=== PATIENT | male | born 1965 | race Caucasian/White ===

== ENCOUNTER 2023-05-23 14:38 | Inpatient (IN) | payer OTHER ==
[2023-05-23 16:09] LABS: EOS % 1.8 % (0-4.5); HEMATOCRIT 39.9 % (35.4-49); HEMOGLOBIN 13.6 GM/dL (11.7-16.9); MCH 32.3 pg (25.7-33.7); MCHC 34.1 g/dl (32.0-35.9); MEAN CELL VOLUME 94.7 fl (80-96); MONO % 6.2 % (3.8-10.2); PLATELET COUNT 322 10^3/uL (134-434); RBC 4.21 M/mm3 (4.00-5.60); RDW 13.3 % (11.9-15.9); WHITE BLOOD COUNT 14.2 K/mm3 (4.0-10.0)
[2023-05-23 16:17] LABS: INR 1.09 (0.83-1.09); PROTHROMBIN TIME (PATIENT) 12.6 SEC (9.7-13.0)
[2023-05-23 16:35] LABS: POTASSIUM 3.7 mmol/L (3.5-5.1)
[2023-05-23 16:37] LABS: CALCIUM 8.7 mg/dL (8.5-10.1)
[2023-05-23 16:38] LABS: ALBUMIN 3.3 g/dl (3.4-5.0); BLOOD UREA NITROGEN 17.3 mg/dL (7-18)
[2023-05-23 16:41] LABS: CREATININE 0.9 mg/dL (0.55-1.3)
[2023-05-23 16:42] LABS: BILIRUBIN,TOTAL 0.6 mg/dL (0.2-1); TOT PROT 6.4 g/dl (6.4-8.2)
[2023-05-23] MEDS ORDERED: LABETALOL HCL 5 MG/1 ML (100MG/20 ML VIAL) IVPUSH ONE (17:13)
[2023-05-23] MEDS ORDERED: LABETALOL HCL 5 MG/1 ML (100MG/20 ML VIAL) ONE (17:14)
[2023-05-23] MEDS ORDERED: FLUTICASONE PROP 0.05% 16 GM NASAL SPRAY NS ONE (22:19)
[2023-05-23] MEDS ORDERED: NICOTINE 21 MG/24 HOURS TOPICAL PATCH ONE (22:19)
[2023-05-23] MEDS: NICOTINE 7 MG/24 HOURS TOPICAL PATCH TD SCH (22:21)
[2023-05-23] MEDS ORDERED: NICOTINE 7 MG/24 HOURS TOPICAL PATCH TD ONE (22:23)
[2023-05-24] MEDS ORDERED: NIFEdipine E.R 60 MG TABLET PO ONE (00:18)
[2023-05-24] MEDS ORDERED: LABETALOL HCL 5 MG/1 ML (100MG/20 ML VIAL) IVPUSH ONE (00:21)
[2023-05-24] MEDS ORDERED: LABETALOL HCL 5 MG/1 ML (100MG/20 ML VIAL) ONE (01:09)
[2023-05-24] MEDS ORDERED: FUROSEMIDE 40 MG/4 ML INJECTABLE VIAL IVPUSH ONE (01:43)
[2023-05-24] MEDS ORDERED: FUROSEMIDE 40 MG/4 ML INJECTABLE VIAL ONE (02:06)
[2023-05-24 02:19] LABS: N-TERMINAL BNP 3018.8 pg/ml (5-125)
[2023-05-24] MEDS ORDERED: hydrALAZINE HCL 20 MG/ML VIAL IVPUSH PRN (02:30)
[2023-05-24 04:06] LABS: PH,URINE 6.5 (5.0-8.0); URINE APPEARANCE CLEAR; URINE BILIRUBIN NEGATIVE (NEGATIVE); URINE COLOR YELLOW; URINE GLUCOSE (UA) NEGATIVE (NEGATIVE); URINE KETONE NEGATIVE (NEGATIVE); URINE LEUK ESTERASE NEGATIVE (NEGATIVE); URINE NITRITE NEGATIVE (NEGATIVE); URINE PROTEIN NEGATIVE (NEGATIVE); URINE UROBILINOGEN 0.2 mg/dL (0.2-1.0)
[2023-05-24 04:09] VITALS: BMI 32.6
[2023-05-24 04:13] LABS: METHADONE, UR NEGATIVE (NEGATIVE); OPIATES, URI NEGATIVE (NEGATIVE); PHENCYCLIDINE,URINE NEGATIVE (NEGATIVE)
[2023-05-24] MEDS ORDERED: LOSARTAN 50MG/HCTZ 12.5MG 1 TAB PO SCH ×2 (05:00→10:00)
[2023-05-24] MEDS ORDERED: NIFEdipine E.R 60 MG TABLET PO SCH ×2 (05:00→10:00)
[2023-05-24 06:00] LABS: COCAINE, UR POSITIVE (NEGATIVE); URINE AMPHETAMINES NEGATIVE (NEGATIVE); URINE BARBITURATES NEGATIVE (NEGATIVE); URINE BENZODIAZEPINES NEGATIVE (NEGATIVE)
[2023-05-24] MEDS ORDERED: ENOXAPARIN NA (PORCINE) 40 MG/0.4 ML DISP.SYRIN SQ SCH (10:00)
[2023-05-24] MEDS ORDERED: FOLIC ACID 1 MG TABLET (FP) PO SCH (10:00)
[2023-05-24] MEDS ORDERED: FUROSEMIDE 40 MG/4 ML INJECTABLE VIAL IVPUSH SCH (10:00)
[2023-05-24] MEDS ORDERED: HYDROCORTISONE 2.5% TOPICAL CREAM 30 GM TUBE TP SCH (10:00)
[2023-05-24] MEDS ORDERED: THIAMINE HCL 100 MG TABLET (FP) PO SCH (10:00)
[2023-05-24] MEDS ORDERED: CLOTRIMAZOLE 1% CREAM TP SCH (10:00)
[2023-05-24] MEDS ORDERED: POLYETHYLENE GLYCOL (HEALTHYLAX) 3350 17 GM PACKET PO SCH (10:00)
[2023-05-24] MEDS: NICOTINE 7 MG/24 HOURS TOPICAL PATCH TD SCH (10:19)
[2023-05-24] MEDS ORDERED: NYSTATIN 100,000 UNIT/GM TOPICAL CREAM 15 GM TUBE TP SCH (11:00)
[2023-05-24] MEDS ORDERED: BISACODYL 10 MG SUPP.RECT PR ONE (17:36)
[2023-05-24] MEDS: hydrALAZINE HCL 20 MG/ML VIAL IVPUSH PRN (22:48)
[2023-05-25] MEDS: NYSTATIN 100,000 UNIT/GM TOPICAL CREAM 15 GM TUBE TP SCH ×3 (01:48→22:22)
[2023-05-25] MEDS: hydrALAZINE HCL 20 MG/ML VIAL IVPUSH PRN ×2 (04:05→17:26)
[2023-05-25 09:15] LABS: HEMATOCRIT 40.3 % (35.4-49); HEMOGLOBIN 13.7 GM/dL (11.7-16.9); MCH 32.5 pg (25.7-33.7); MEAN CELL VOLUME 95.6 fl (80-96); MEAN PLT VOLUME 7.4 fl (7.5-11.1); PLATELET COUNT 322 10^3/uL (134-434); RBC 4.21 M/mm3 (4.00-5.60); RDW 13.4 % (11.9-15.9); WHITE BLOOD COUNT 13.5 K/mm3 (4.0-10.0)
[2023-05-25 09:16] LABS: BASO % 0.5 % (0-2.0); EOS % 2.6 % (0-4.5); HEMATOCRIT 39.5 % (35.4-49); HEMOGLOBIN 13.6 GM/dL (11.7-16.9); LYMPH % 12.3 % (8-40); MCH 32.8 pg (25.7-33.7); MCHC 34.4 g/dl (32.0-35.9); MEAN CELL VOLUME 95.2 fl (80-96); MEAN PLT VOLUME 7.5 fl (7.5-11.1); MONO % 9.2 % (3.8-10.2); NEUT % 75.4 % (42.8-82.8); PLATELET COUNT 326 10^3/uL (134-434); RBC 4.14 M/mm3 (4.00-5.60); RDW 13.5 % (11.9-15.9); WHITE BLOOD COUNT 13.7 K/mm3 (4.0-10.0)
[2023-05-25 09:33] LABS: POTASSIUM 3.3 mmol/L (3.5-5.1)
[2023-05-25 09:37] LABS: ALBUMIN 3.5 g/dl (3.4-5.0); BLOOD UREA NITROGEN 22.2 mg/dL (7-18); CALCIUM 8.9 mg/dL (8.5-10.1)
[2023-05-25 09:41] LABS: CREATININE 1.1 mg/dL (0.55-1.3)
[2023-05-25 09:42] LABS: BILIRUBIN,TOTAL 0.9 mg/dL (0.2-1); TOT PROT 6.8 g/dl (6.4-8.2)
[2023-05-25] MEDS: POLYETHYLENE GLYCOL (HEALTHYLAX) 3350 17 GM PACKET PO SCH (09:42)
[2023-05-25] MEDS: THIAMINE HCL 100 MG TABLET (FP) PO SCH (09:42)
[2023-05-25] MEDS: LOSARTAN 50MG/HCTZ 12.5MG 1 TAB PO SCH (09:42)
[2023-05-25] MEDS: FOLIC ACID 1 MG TABLET (FP) PO SCH (09:42)
[2023-05-25] MEDS: NICOTINE 7 MG/24 HOURS TOPICAL PATCH TD SCH (09:42)
[2023-05-25] MEDS: NIFEdipine E.R 60 MG TABLET PO SCH (09:42)
[2023-05-25] MEDS: HYDROCORTISONE 2.5% TOPICAL CREAM 30 GM TUBE TP SCH (09:43)
[2023-05-25] MEDS: CLOTRIMAZOLE 1% CREAM TP SCH (09:44)
[2023-05-25] MEDS ORDERED: FUROSEMIDE 40 MG/4 ML INJECTABLE VIAL IVPUSH SCH (10:00)
[2023-05-25] MEDS ORDERED: SODIUM CHLORIDE NASAL SPRAY 44 ML BOTTLE NS PRN (15:46)
[2023-05-26 09:09] LABS: BASO % 0.9 % (0-2.0); EOS % 2.1 % (0-4.5); HEMATOCRIT 42.2 % (35.4-49); HEMOGLOBIN 14.1 GM/dL (11.7-16.9); MCH 31.8 pg (25.7-33.7); MCHC 33.4 g/dl (32.0-35.9); MEAN CELL VOLUME 95.3 fl (80-96); MEAN PLT VOLUME 7.4 fl (7.5-11.1); PLATELET COUNT 338 10^3/uL (134-434); RBC 4.43 M/mm3 (4.00-5.60); RDW 12.9 % (11.9-15.9); WHITE BLOOD COUNT 13.6 K/mm3 (4.0-10.0)
[2023-05-26 09:21] LABS: POTASSIUM 3.6 mmol/L (3.5-5.1)
[2023-05-26 09:24] LABS: ALBUMIN 3.3 g/dl (3.4-5.0); CALCIUM 8.9 mg/dL (8.5-10.1)
[2023-05-26 09:29] LABS: BILIRUBIN,TOTAL 0.8 mg/dL (0.2-1); TOT PROT 6.6 g/dl (6.4-8.2)
[2023-05-26] MEDS: NICOTINE 7 MG/24 HOURS TOPICAL PATCH TD SCH (09:39)
[2023-05-26] MEDS: CLOTRIMAZOLE 1% CREAM TP SCH (09:39)
[2023-05-26] MEDS: FOLIC ACID 1 MG TABLET (FP) PO SCH (09:39)
[2023-05-26] MEDS: POLYETHYLENE GLYCOL (HEALTHYLAX) 3350 17 GM PACKET PO SCH (09:39)
[2023-05-26] MEDS: LOSARTAN 50MG/HCTZ 12.5MG 1 TAB PO SCH (09:39)
[2023-05-26] MEDS: NIFEdipine E.R 60 MG TABLET PO SCH (09:39)
[2023-05-26] MEDS: THIAMINE HCL 100 MG TABLET (FP) PO SCH (09:39)
[2023-05-26] MEDS: HYDROCORTISONE 2.5% TOPICAL CREAM 30 GM TUBE TP SCH (09:40)
[2023-05-26] MEDS: NYSTATIN 100,000 UNIT/GM TOPICAL CREAM 15 GM TUBE TP SCH ×2 (09:40→22:32)
[2023-05-26] MEDS: hydrALAZINE HCL 20 MG/ML VIAL IVPUSH PRN (14:28)
[2023-05-26] MEDS: LISINOPRIL 10 MG TABLET PO SCH (17:49)
[2023-05-27] MEDS: THIAMINE HCL 100 MG TABLET (FP) PO SCH (10:11)
[2023-05-27] MEDS: LOSARTAN 50MG/HCTZ 12.5MG 1 TAB PO SCH (10:11)
[2023-05-27] MEDS: LISINOPRIL 10 MG TABLET PO SCH (10:11)
[2023-05-27] MEDS: POLYETHYLENE GLYCOL (HEALTHYLAX) 3350 17 GM PACKET PO SCH (10:11)
[2023-05-27] MEDS: NIFEdipine E.R. 90 MG TABLET PO SCH (10:11)
[2023-05-27] MEDS: NICOTINE 7 MG/24 HOURS TOPICAL PATCH TD SCH (10:11)
[2023-05-27] MEDS: CLOTRIMAZOLE 1% CREAM TP SCH (10:12)
[2023-05-27] MEDS: HYDROCORTISONE 2.5% TOPICAL CREAM 30 GM TUBE TP SCH (10:12)
[2023-05-27] MEDS: NYSTATIN 100,000 UNIT/GM TOPICAL CREAM 15 GM TUBE TP SCH ×2 (10:12→21:33)
[2023-05-27] MEDS: FOLIC ACID 1 MG TABLET (FP) PO SCH (10:12)
[2023-05-27] MEDS ORDERED: LOSARTAN 50MG/HCTZ 12.5MG 1 TAB PO ONE (13:40)
[2023-05-27] MEDS: hydrALAZINE HCL 20 MG/ML VIAL IVPUSH PRN (18:00)
[2023-05-27] MEDS ORDERED: LOSARTAN 50MG/HCTZ 12.5MG 1 TAB PO SCH (18:01)
[2023-05-27 21:31] VITALS: RESP 18
[2023-05-28 09:33] LABS: POTASSIUM 4.1 mmol/L (3.5-5.1)
[2023-05-28 09:38] LABS: CALCIUM 8.9 mg/dL (8.5-10.1)
[2023-05-28 09:39] LABS: ALBUMIN 3.4 g/dl (3.4-5.0); BLOOD UREA NITROGEN 18.3 mg/dL (7-18)
[2023-05-28 09:43] LABS: BILIRUBIN,TOTAL 0.7 mg/dL (0.2-1); TOT PROT 6.8 g/dl (6.4-8.2)
[2023-05-28 09:51] LABS: BASO % 0.8 % (0-2.0); HEMATOCRIT 40.9 % (35.4-49); HEMOGLOBIN 13.7 GM/dL (11.7-16.9); LYMPH % 12.7 % (8-40); MCH 32.2 pg (25.7-33.7); MCHC 33.4 g/dl (32.0-35.9); MEAN CELL VOLUME 96.1 fl (80-96); MEAN PLT VOLUME 7.5 fl (7.5-11.1); MONO % 9.3 % (3.8-10.2); NEUT % 75.2 % (42.8-82.8); PLATELET COUNT 352 10^3/uL (134-434); RBC 4.25 M/mm3 (4.00-5.60); RDW 13.2 % (11.9-15.9); WHITE BLOOD COUNT 14.9 K/mm3 (4.0-10.0)
[2023-05-28] MEDS: NIFEdipine E.R. 90 MG TABLET PO SCH (10:26)
[2023-05-28] MEDS: POLYETHYLENE GLYCOL (HEALTHYLAX) 3350 17 GM PACKET PO SCH (10:26)
[2023-05-28] MEDS: FOLIC ACID 1 MG TABLET (FP) PO SCH (10:26)
[2023-05-28] MEDS: THIAMINE HCL 100 MG TABLET (FP) PO SCH (10:26)
[2023-05-28] MEDS: NYSTATIN 100,000 UNIT/GM TOPICAL CREAM 15 GM TUBE TP SCH (10:46)
[2023-05-28] MEDS: HYDROCORTISONE 2.5% TOPICAL CREAM 30 GM TUBE TP SCH (10:50)
[2023-05-28] MEDS: CLOTRIMAZOLE 1% CREAM TP SCH (10:50)
[2023-05-28] MEDS: NICOTINE 7 MG/24 HOURS TOPICAL PATCH TD SCH (10:54)
[2023-05-28 15:31] VITALS: BP 124/89; PULSE 85; TEMP 99.6
== END 2023-05-28 15:38 | disposition home or self-care (01) | DRG 194 ==
LOC: JER 14:38 → JERBED 22:53 → J4W 05-24 03:16 → J5S 05-24 19:19
PROVIDERS: ADMIT Internal Medicine; ATTEND Internal Medicine
DX: I13.0 Hypertensive heart and chronic kidney disease with heart failure and stage 1 through stage 4 chronic kidney disease, or unspecified chronic kidney disease (principal); I67.4 Hypertensive encephalopathy; N18.2 Chronic kidney disease, stage 2 (mild); I50.33 Acute on chronic diastolic (congestive) heart failure; I16.0 Hypertensive urgency; I16.1 Hypertensive emergency; F10.20 Alcohol dependence, uncomplicated; F14.10 Cocaine abuse, uncomplicated; E78.5 Hyperlipidemia, unspecified; G89.29 Other chronic pain; K42.9 Umbilical hernia without obstruction or gangrene; K59.00 Constipation, unspecified; E87.70 Fluid overload, unspecified; R06.02 Shortness of breath; K64.8 Other hemorrhoids; J32.9 Chronic sinusitis, unspecified
CPT/HCPCS: 0241U-QW; 36415; 70450-TC; 71046-TC-FY; 74177-TC; 80048; 80053; 80061; 80307; 81003; 82140; 82272; 83036; 83690; 83880; 84439; 84443; 84484; 85025; 85027; 85610; 85730; 87086; 93005; 93010; 93306-TC; 93970-TC; 99285-25; Q9967

== ENCOUNTER 2023-08-26 12:09 | Emergency (ER) | payer OTHER ==
[2023-08-26 12:25] VITALS: BP 119/59; PULSE 75; RESP 18; TEMP 98.2; BMI 33.9
[2023-08-26] MEDS ORDERED: KETOROLAC TROMETHAMINE 30 MG/1 ML VIAL ONE (13:43)
[2023-08-26] MEDS ORDERED: ACETAMINOPHEN 500 MG TABLET (FP) ONE (13:43)
[2023-08-26] MEDS: KETOROLAC TROMETHAMINE 30 MG/1 ML VIAL IM ONE (13:48)
[2023-08-26] MEDS: ACETAMINOPHEN 500 MG TABLET (FP) PO ONE (13:49)
== END 2023-08-26 15:21 | disposition home or self-care (01) ==
LOC: JERFT 12:09
PROC: 3E0233Z Introduction of Anti-inflammatory into Muscle, Percutaneous Approach (ICD-10-PCS; principal; 2023-08-26)
PROC: 2W3FX1Z Immobilization of Left Hand using Splint (ICD-10-PCS; 2023-08-26)
DX: S69.92XA Unspecified injury of left wrist, hand and finger(s), initial encounter (principal); W01.0XXA Fall on same level from slipping, tripping and stumbling without subsequent striking against object, initial encounter
CPT/HCPCS: 29125; 96372; 99284-25

== ENCOUNTER 2025-02-18 06:18 | Day surgery (SDC) | payer OTHER ==
[2025-02-16 10:12] VITALS: BMI 34.3
[2025-02-18] MEDS ORDERED: LIDOCAINE HCL/PF 1% SDV 5ML VIAL ONE (07:23)
[2025-02-18] MEDS ORDERED: DEXAMETHASONE SOD PHOSPHATE 10 MG/1 ML VIAL ONE (07:23)
[2025-02-18] MEDS: LIDOCAINE HCL 1% PRESERVATIVE FREE - 30ML VIAL IJ ONE ×2 (10:06)
[2025-02-18] MEDS: IOHEXOL 180 MG/1 ML ML IJ ONE ×2 (10:09)
[2025-02-18] MEDS: DEXAMETHASONE SOD PHOSPHATE 10 MG/1 ML VIAL IM ONE ×2 (10:10)
[2025-02-18 10:52] VITALS: BP 119/66; PULSE 76; RESP 20; TEMP 98.2
== END 2025-02-18 10:45 | disposition home or self-care (01) ==
LOC: JASU-SURG 06:18
PROVIDERS: ATTEND Pain Medicine Pain Medicine
PROC: 3E0R3BZ Introduction of Anesthetic Agent into Spinal Canal, Percutaneous Approach (ICD-10-PCS; 2025-02-18)
PROC: 3E0R33Z Introduction of Anti-inflammatory into Spinal Canal, Percutaneous Approach (ICD-10-PCS; principal; 2025-02-18 10:15)
DX: M48.061 Spinal stenosis, lumbar region without neurogenic claudication (principal); M54.16 Radiculopathy, lumbar region
CPT/HCPCS: 76000-TC-FY; J1100